=== PATIENT | female | born 1960 | race Caucasian/White ===

== ENCOUNTER 2018-08-05 19:41 | Inpatient (IN) | payer BC ==
[~2018-08-05] VITALS: Ht 172.7 cm; Wt 105.2 kg
[2018-08-05 19:58] VITALS: BP 148/63
[2018-08-05] MEDS ORDERED: LIPITOR10 MG PO (20:16)
[2018-08-05] MEDS ORDERED: ASPIRIN325 PO (20:16)
[2018-08-05] MEDS ORDERED: NORVASC10 MG PO (20:16)
[2018-08-05] MEDS ORDERED: COLCHICINE0.6 MG PO (20:16)
[2018-08-05] MEDS ORDERED: ACYCLOVIR 400400 MG PO (20:16)
[2018-08-05] MEDS ORDERED: COLACE100 MG PO (20:17)
[2018-08-05] MEDS ORDERED: IRON325 PO (20:17)
[2018-08-05] MEDS ORDERED: FOLIC ACID1 MG PO (20:17)
[2018-08-05] MEDS ORDERED: DECADRON4 MG PO (20:17)
[2018-08-05] MEDS ORDERED: NORCO 7.5-3251 EACH PO (20:18)
[2018-08-05] MEDS ORDERED: REVLIMID25 MG PO (20:19)
[2018-08-05] MEDS ORDERED: TOPROL XL100 MG PO (20:19)
[2018-08-05] MEDS ORDERED: COZAAR100 MG PO (20:19)
[2018-08-05] MEDS ORDERED: PROTONIX40 M1 PO (20:20)
[2018-08-05] MEDS ORDERED: ONDANSETRON ODT8 MG PO (20:20)
[2018-08-05] MEDS ORDERED: MIRALAX17 GM PO (20:20)
[2018-08-05] MEDS ORDERED: BACTRIM DS TAB1 EACH PO (20:21)
[2018-08-05 20:31] LABS: HEMATOCRIT 28.9 % (37.0-47.0); HEMOGLOBIN 9.3 gm/dL (12.0-15.0); MCH 28.7 pg (26.0-34.0); MCHC 32.2 g/dL (28.0-37.0); MCV 89.2 fL (80.0-100.0); MPV 9.1 fl. (7.2-11.1); NUCLEATED RBCS 0 /100WBC; PLATELET COUNT* 143 thou/uL (150-400); RBC 3.24 mil/uL (4.20-5.00); RDW-CV 19.6 % (10.5-14.5)
[2018-08-05 20:43] LABS: ANION GAP 9 mmol/L (7-16); BUN 10 mg/dL (7-18); CALCIUM 7.9 mg/dL (8.5-10.1); CHLORIDE 100 mmol/L (98-107); CO2 27 mmol/L (21-32); CREATININE 0.9 mg/dL (0.6-1.3); GLUCOSE 107 mg/dL (70-99); POTASSIUM 3.2 mmol/L (3.5-5.1); SODIUM 136 mmol/L (136-145)
[2018-08-05 20:50] LABS: ALBUMIN 2.6 g/dL (3.4-5.0); ALKALINE PHOSPHATASE 106 U/L (46-116); SGOT 16 U/L (15-37); SGPT 29 U/L (30-65); TOTAL BILIRUBIN 0.4 mg/dL (<0.1-1.0); TOTAL PROTEIN 7.2 g/dL (6.4-8.2); TROPONIN-I LEVEL <0.06 ng/mL (<0.06)
[2018-08-05 20:56] LABS: INR 1.1; PROTIME 10.8 Seconds (9.20-11.50)
[2018-08-05 21:20] LABS: ABSOLUTE BASOPHILS 0.1 thou/uL (0.0-0.2); ABSOLUTE LYMPHOCYTES 0.2 thou/uL (0.8-5.3); ABSOLUTE MONOCYTES 0.2 thou/uL (0.0-1.2); ABSOLUTE NEUTROPHILS 3.4 thou/uL (1.6-8.1); PLATELET ESTIMATE DECREASED
[2018-08-05 21:21] LABS: ANISOCYTOSIS 1+
[2018-08-06] VITALS (23 sets, daily range): BP systolic 129–170; BP diastolic 64–109
--- NOTE | 2018-08-06 06:19 | NUR ---
PT ADMITTED FROM ER AND MOVED SELF TO BED WITH HELP. PT AAOX4, RESP REG AND MILDLY LABORED AT TIMES. NO ACUTE DISTRESS NOED AT THIS TIME. PT DENIES PAIN AT THIS TIME. PT ORIENTED TO ROOM, CALL SYSTEM BED CONTROLS ANSD TV CONTROLS. VSS AND NO ACUTE CHANGES DURING SHIFT. CURATORIAL SPECIALIST APPLIED. PT HEPARIN GTT INTACT AND INFUSING AT 15U / HR ORDRED. WILL CONTINNUE TO MONITOR
[2018-08-06 07:59] LABS: CALCIUM 7.8 mg/dL (8.5-10.1); CREATININE 0.7 mg/dL (0.6-1.3); MAGNESIUM 1.3 mg/dL (1.8-2.4); POTASSIUM 3.2 mmol/L (3.5-5.1)
--- NOTE | 2018-08-06 13:05 | EKG ---
[place] [address] ELECTROCARDIOGRAM REPORT Name: RAMA PERKNIS Room: [address] ADM IN .R.#: [id number] Admission: 08/05/18 Attend Phys: Adenike Tang Discharge: Date of : 64 Report #: [id number] THIS REPORT FOR: //name// [facility] ED Test Date: 2018-08-05 Test Time: 20:58:23 Pat Name: RAMA PERKINS Department: Room: [facility] Gender: F Rn Neurology: KELLI : 1960 Requested By: Noe Nelson Order Number: [id number] MD: Deepak Ledezma Measurements Intervals [employer] Rate: 112 P: 25 WA: 137 QRS: -3 QRSD: 86 T: 9 QT: 321 QTc: 438 Interpretive Statements Sinus tachycardia No previous ECG available for comparison Electronically Signed On 08-06-2018 13:04:51 CDT by Deepak Ledezma [email or web address] <ELECTRONICALLY SIGNED> By: Deepak Ledezma MD, [facility] 08/06/18 1304 57 Deepak Ledezma MD, FACC /EPI
[2018-08-06 13:09] LABS: URINE BILIRUBIN NEGATIVE (Negative); URINE BLOOD NEGATIVE (Negative); URINE CLARITY CLEAR; URINE COLOR YELLOW; URINE GLUCOSE-RANDOM NEGATIVE (Negative); URINE KETONES NEGATIVE (Negative); URINE LEUKOCYTES-REFLEX NEGATIVE (Negative); URINE NITRITE-REFLEX NEGATIVE (Negative); URINE PROTEIN NEGATIVE (Negative); URINE SPECIFIC GRAVITY <= 1.005 (1.005-1.030); URINE UROBILINOGEN 0.2 E.U./dl (0.2-1.0)
--- NOTE | 2018-08-06 13:39 | 2DMMODE ---
[place] [address] 2 D/M-MODE ECHOCARDIOGRAM Name: RAMA PERKINS Room: [address] ADM IN [facility]#: [id number] Admission: 08/05/18 Attend Phys: Kashmir Sunshine Discharge: Date of : 64 Date of Service: 08/06/18 1339 Report #: [id number] THIS REPORT FOR: //name// APPROVED REPORT Study performed: 08/06/2018 10:51:46 EXAM: Comprehensive 2D, Doppler, and color-flow Echocardiogram Patient Location: In-Patient Room #: [facility] Status: routine BSA: 2.18 HR: 104 bpm BP: 158/82 mmHg Rhythm: NSR Other Information Study Quality: Fair Indications Pulmonary Embolism 2D Dimensions IVSd: 12.17 (7-11mm) LVOT Diam: 20.67 (18-24mm) LVDd: 42.27 mm PWd: 10.98 (7-11mm) Ascending Ao: 31.14 (22-36mm) LVDs: 23.26 (25-40mm) Aortic Root: 27.21 mm Volumes Left Atrial Volume (Systole) LA ESV Index: 16.80 mL/m2 Aortic Valve AoV Peak Neville.: 1.93 m/s AO Peak Gr.: 14.92 mmHg LVOT Max P.12 mmHg AO Mean Gr.: 8.64 mmHg LVOT Mean P.90 mmHg LVOT Max V: 1.67 m/s AO V2 VTI: 31.42 cm LVOT Mean V: 1.12 m/s YUE (VTI): 3.06 cm2 LVOT V1 VTI: 28.66 cm Mitral Valve E/A Ratio: 1.07 MV Decel. Time: 192.69 ms MV E Max Neville.: 0.96 m/[place] [address] 2 D/M-MODE ECHOCARDIOGRAM Name: RAMA PERKINS Room: [address] IN .R.#: [id number] Admission: 08/05/18 Attend Phys: Kashmir Sunshine Discharge: Date of : 64 Date of Service: 08/06/18 1339 Report #: [id number] MV PHT: 55.88 ms MVA (PHT): 3.94 cm2 TDI E/Lateral E': 6.00 E/Medial E': 6.86 Medial E' Neville.: 0.14 m/s Lateral E' Neville.: 0.16 m/s Pulmonary Valve PV Peak Neville.: 1.12 m/s PV Peak Gr.: 5.06 mmHg Left Ventricle The left ventricle is normal size. There is normal LV segmental wall motion. There is normal left ventricular wall thickness. Left ventricular systolic function is normal. The left ventricular ejection fraction is within the normal range. LVEF is 60-65%. The left ventricular diastolic function is normal. Right Ventricle The right ventricle is normal size. The right ventricular systolic function is normal. Atria The left atrium size is normal. The right atrium size is normal. Aortic Valve The aortic valve is normal in structure. No aortic regurgitation is present. There is no aortic valvular stenosis. Mitral Valve The mitral valve is normal in structure. There is no mitral valve regurgitation noted. No evidence of mitral valve stenosis. Tricuspid Valve The tricuspid valve is normal in structure. Unable to assess PA pressure. Trace tricuspid regurgitation. Pulmonic Valve Pulmonic valve is not well visualized. There is no pulmonic valvular regurgitation. Great Vessels The aortic root is normal in size. IVC is normal in size and collapses with >50% [place] [address] 2 D/M-MODE ECHOCARDIOGRAM Name: RAMA PERKINS Room: [address] IN [facility]#: [id number] Admission: 08/05/18 Attend Phys: Kashmir Sunshine Discharge: Date of : 64 Date of Service: 08/06/18 1339 Report #: [id number] Pericardium There is no pericardial effusion. <Conclusion> Left ventricular systolic function is normal. The left ventricular ejection fraction is within the normal range. <ELECTRONICALLY SIGNED> By: Deepak Ledezma MD, FACC 08/06/18 1339 1339 1339 Deepak Ledezma MD, FACC /INF
--- NOTE | 2018-08-06 15:28 | NUR ---
ULTRASOUND OF BILATERAL LOWER EXTREMITIES COMPLETED AND RESULTED CLOT IN LEFT LEG. DR DOMENICO MARTINES. WAITING ON RESPONSE.
--- NOTE | 2018-08-06 15:56 | NUR ---
DR ACUÑA RETURNED CALL, NO CHANGE TO TREATMENT.
--- NOTE | 2018-08-06 17:08 | NUR ---
PATIENT ASSESSMENT REMAINED STABLE THROUGHOUT SHIFT. AFEBRILE. VSS. TRACING NSR TO SINUS TACH ON DIRECTOR OF OPERATIONS FOR THERAPY. UP TO BSC COMMODE TO URINATE X2. FAIR APPETITE NOTED. DENIES PAIN. DENIES FURTHER CONCERNS ABOUT CURRENT PLAN OF CARE.
[2018-08-07] VITALS: BP 154/72
[2018-08-07 02:00] VITALS: BP 139/68
[2018-08-07 04:05] VITALS: BP 142/79
[2018-08-07 04:26] LABS: HEMOGLOBIN 8.1 gm/dL (12.0-15.0); MCH 28.7 pg (26.0-34.0); MCHC 32.4 g/dL (28.0-37.0); MCV 88.7 fL (80.0-100.0); MPV 9.3 fl. (7.2-11.1); RBC 2.82 mil/uL (4.20-5.00)
[2018-08-07 04:43] LABS: CALCIUM 7.7 mg/dL (8.5-10.1); CREATININE 0.6 mg/dL (0.6-1.3); MAGNESIUM 1.4 mg/dL (1.8-2.4); POTASSIUM 3.4 mmol/L (3.5-5.1)
--- NOTE | 2018-08-07 05:21 | NUR ---
PT. PROGRESSING TOWARDS GOALS. UP TO BEDSIDE COMMODE INDEPENDENTLY THROUGHOUT SHIFT. 2L O2 PUT ON PT. DUE TO O2 DESAT WHEN SLEEPING. PT. HAS HAD NON-PRODUCTIVE COUGH. DENIED PAIN THROUGHOUT SHIFT. CALL LIGHT IN REACH, WILL CONTINUE TO MONITOR.
[2018-08-07 06:08] VITALS: BP 142/77
--- NOTE | 2018-08-07 09:14 | CON ---
[address] [address] CONSULTATION Name: RAMA PERKINS Room: [address] ADM IN M.R.#: [id number] Admission: 08/05/18 Attend Phys: Adenike Tang Discharge: Date of : 64 Report #: [id number] THIS REPORT FOR: //name// CC: Jose Sunshine DATE OF SERVICE: 08/06/2018 REASON FOR CONSULTATION: Pulmonary embolus, multiple myeloma. REQUESTING PHYSICIAN: Dr. Sunshine. HISTORY OF PRESENT ILLNESS: The patient is a pleasant 58-year-old woman with multiple myeloma who was under the care of sugar plantation manager at [facility], just recently transferred to [facility], has seen Dr. Frank. He recommended Velcade, dexamethasone and Revlimid. The patient started treatment a month ago, completed one full cycle and started second cycle of treatment. She presented to Emergency Room with complaints of fevers, cough and nasal congestion. She was found to have large saddle pulmonary embolus. Oncology consult was requested. The patient is on heparin drip. She is doing very well. She is off oxygen. She does not have chest pain. Denies significant shortness of breath. She continues to have nasal congestion and cough, productive of somewhat yellow sputum. She has history of right foot tendinitis and swelling of right foot. [facility]. She has had a Doppler ultrasound months ago, which was negative. A second Doppler ultrasound was not ordered. She has not had Doppler ultrasound of lower extremities in the hospital either. PAST MEDICAL HISTORY: Significant for multiple myeloma, hypertension. SOCIAL HISTORY: She does not smoke. REVIEW OF SYSTEMS: CONSTITUTIONAL: Negative for weight loss. MUSCULOSKELETAL: Denies back pain. NEUROLOGIC: Denies tingling or numbness in extremities. PSYCHIATRIC: Negative. PULMONARY: See above. GASTROINTESTINAL: No nausea, vomiting, diarrhea. RESPIRATORY: See above. CARDIOVASCULAR: See above. PHYSICAL EXAMINATION: GENERAL: Reveals well-developed, well-nourished man, not in acute distress. VITAL SIGNS: Blood pressure 150/72, heart rate is 98, temperature 98.8, respirations 18, pulse ox 94% [place] [address] CONSULTATION Name: RAMA PERKINS Room: [address] IN [facility].#: [id number] Admission: 08/05/18 Attend Phys: Adenike Tang Discharge: Date of : 64 Report #: [id number] HEENT: Does not reveal thrush. HEART: Normal S1, S2. LUNGS: Clear. ABDOMEN: Soft. No organomegaly. EXTREMITIES: Slight swelling of the left lower extremity. SKIN: No rash. PSYCHIATRIC: Alert, oriented x 3. There is no peripheral lymphadenopathy. LABORATORY DATA: White count 4.0, hemoglobin 9.3, platelets 143. Sodium 137, potassium 2.2, magnesium 1.3. Total protein 7.2, albumin 2.6. Chest CT angio, saddle embolus is the largest component in the left main pulmonary artery, measures 1.1 cm in thickness, at least 10 cm in length, bilateral lower lobe pulmonary artery filling defects. ASSESSMENT AND PLAN: 1. Pulmonary embolus, the patient is hemodynamically stable. Agree with management. The patient can be discharged on Xarelto when she is ready to go home. Recommend to check Doppler ultrasound of lower extremity to determine origin of the venous thrombosis. She understands that risk of venous thrombosis is increased with Revlimid. She was on full dose of aspirin for prophylaxis, this can be discontinued. 2. Multiple myeloma. Otherwise, continue current management. She will continue dexamethasone and Revlimid as prescribed previously. Continue Velcade according to her schedule. 3. Sinusitis and bronchitis, agree with antibiotics. 4. Hypokalemia, management of hypokalemia and hypomagnesemia deferred to hospitalist. Thank you very much for allowing me to participate in the care of this patient. <ELECTRONICALLY SIGNED> By: Everett Stuart MD 08/07/18 0914 1314 [id number] Stuart MD /nt
[2018-08-07 16:00] VITALS: BP 125/77
--- NOTE | 2018-08-07 17:28 | NUR ---
PATIENT TRANSFERRED FROM ICU TO ROOM 311 AT 1600. REPORT RECEIVED AT BEDSIDE, PATIENT'S PATIENT REGISTRATION REP RESUMED. PATIENT TRACING NSR/ST AT TIMES. PATIENT DENIES PAIN. AGREE WITH PREVIOUS ASSESMENT, VITALS STABLE ON ROOM AIR. PATIENT UP WITH ASSIST OF 1 AND WALKER. CONTINUES ON IV ANTIBIOTICS. HOURLY ROUNDING COMPLETED. CALL LIGHT WITHIN REACH. WILL CONTINUE WITH PLAN OF CARE.
[2018-08-07 20:00] VITALS: BP 113/78
[2018-08-08 00:23] VITALS: BP 157/75
[2018-08-08 04:13] VITALS: BP 149/76
[2018-08-08 05:00] LABS: HEMOGLOBIN 8.2 gm/dL (12.0-15.0); MCH 28.9 pg (26.0-34.0); MCHC 32.5 g/dL (28.0-37.0); MCV 88.8 fL (80.0-100.0); MPV 8.8 fl. (7.2-11.1); RBC 2.82 mil/uL (4.20-5.00); RDW-CV 19.1 % (10.5-14.5); WBC 2.1 thou/uL (4.0-11.0)
[2018-08-08 05:39] LABS: CALCIUM 7.9 mg/dL (8.5-10.1); CREATININE 0.5 mg/dL (0.6-1.3); MAGNESIUM 1.6 mg/dL (1.8-2.4); POTASSIUM 3.4 mmol/L (3.5-5.1)
--- NOTE | 2018-08-08 06:17 | NUR ---
PT SLEPT OFF AND ON OVERNIGHT. LFA SL, ABX GIVEN SCHEDULED. TELE SR, ST WITH EPISODE OF AFIB DURING VANC INFUSION. UP WITH WALKER AD QI IN ROOM. ABLE TO USE CALL LITE AND MAKE NEEDS KNOWN.
[2018-08-08 08:15] VITALS: BP 133/72
--- NOTE | 2018-08-08 10:44 | NUR ---
SW met with pt to complete initial assessment, introduce self, and SW role. Pt alert, oriented, pleasant. Pt lives at home alone and has a brother, mother, and friends who are supportive. Pt on abx. Pt did not express any dc needs at this time. SW to continue to follow to assist with safe dc planning.
--- NOTE | 2018-08-08 11:48 | CON ---
[address] [address] CONSULTATION Name: RAMA PERKINS Room: [address] IN M.R.#: [id number] Admission: 08/05/18 Attend Phys: Adenike Tang Discharge: Date of : 64 Report #: [id number] THIS REPORT FOR: //name// CC: Jose Sunshine DATE OF SERVICE: 08/07/2018 INFECTIOUS DISEASES CONSULTATION ATTENDING PHYSICIAN: Dr. Sunshine. REASON FOR EVALUATION: Gram-positive septicemia. HISTORY OF PRESENT ILLNESS: Chart reviewed, patient examined. This is a 58-year-old woman with known multiple myeloma diagnosed earlier this year, has been undergoing chemotherapy, who presented to the emergency room with complaints of a cough with onset on 08/03/2018. She attributes this in part to some seasonal allergies, she did have associated mild sore throat as well. Over the course of next 24 to 36 hours, she developed fevers, high-grade to 104. At that point, it was instructed by her oncologist to go ahead and go to the Emergency Room. She was subsequently admitted. It is notable that she has been on chemotherapy. There is some mild anorexia, decreased p.o. intake. No significant sinus complaints. She has associated dyspnea. No abdominal-related complaints. She has not had diarrhea. On questioning, no particular exposure history that she is aware of. She has lived by herself. Generally, she has been staying inside mostly, no recent travel, does have a cat that is essentially limited to the indoors. Evaluation was undertaken. Chest x-ray was otherwise unremarkable. CTA of the chest did show evidence of saddle embolus. She also had evidence of deep venous thrombosis in left lower extremity. Initial lactic acid was 2.3, increased to 2.7 and now 1.5. Blood cultures collected show gram-positive cocci. She was empirically started on antimicrobial therapy, ceftriaxone and vancomycin. She is encephalopathic. ALLERGIES: None known. MEDICATIONS: Include dexamethasone, azithromycin, ceftriaxone, metoprolol, losartan, folic acid, colchicine, amlodipine, pantoprazole, atorvastatin, acyclovir, vancomycin, enoxaparin. PAST MEDICAL HISTORY: History of multiple myeloma, hypertension, previous stroke. SOCIAL HISTORY: Nonsmoker, no ethanol. FAMILY HISTORY: [place] [address] CONSULTATION Name: RAMA PERKINS Room: [address] IN [facility]#: [id number] Admission: 08/05/18 Attend Phys: Adenike Tang Discharge: Date of : 64 Report #: [id number] REVIEW OF SYSTEMS: As above. PHYSICAL EXAMINATION: GENERAL: She appears somewhat chronically ill. She is pleasant, cooperative, in sees-od-szivzrtu distress. She is not encephalopathic, appears to be undernourished. VITAL SIGNS: Temperature overnight max 100.8, more recently 99.6; pulse 90, respirations 18, blood pressure 132/74. SKIN: Warm, dry, no rashes. HEENT: Unremarkable. NECK: Supple. LUNGS: Generally clear to auscultation. HEART: Regular. I do not appreciate any murmur. ABDOMEN: Soft, nontender, nondistended. EXTREMITIES: No cyanosis. GENITOURINARY: Deferred. RECTAL: Deferred. LABORATORY DATA: Blood cultures as described above 12/22 with Gram-positive cocci. Initial electrolytes: Sodium 136, potassium 3.2, chloride 100, bicarbonate 27, BUN and creatinine 10 and 0.9, glucose of 107. LFTs are unremarkable. Albumin of 2.6. Total protein 7.2. Estimated GFR of 70 and 65. Initial INR of 1.1, protime of 10.8. CBC: White count of 4.0, H and H 9.3 and 28.9, platelets of 143. She does have lymphocytopenia. ASSESSMENT: Gram-positive septicemia, it is unclear as to the source at this point, perhaps skin and soft tissue infection, can entirely exclude early respiratory tract infection. Continue combination therapy at this point on empiric basis, I would expect her to be on a wean-down to a single agent in the next 24-48 hours. We will monitor expectantly, evidence for any other clues that may give us a source of infection. <ELECTRONICALLY SIGNED> By: Eriberto Crowell MD 08/08/18 1148 1210 [id number] Crowell MD /nt
--- NOTE | 2018-08-08 13:04 | CON ---
[facility] [address] [place] [address] CONSULTATION Name: RAMA PERKINS Room: [address] IN M.R.#: [id number] Admission: 08/05/18 Attend Phys: Adenike Tang Discharge: Date of : 64 Report #: [id number] THIS REPORT FOR: //name// CC: Jose Sunshine DATE OF SERVICE: 08/07/2018 SUBJECTIVE: The patient is feeling better today. She continues to have upper respiratory congestion, cough. Denies shortness of breath. Denies chest pain. OBJECTIVE: VITAL SIGNS: Blood pressure 132/74, heart rate is 90, temperature 99.6, T-max is 100.8. HEENT: Does not reveal thrush. HEART: Normal S1, S2. LUNGS: Clear. ABDOMEN: Soft. EXTREMITIES: Left leg is slightly swollen. LABORATORY DATA: White count 3.0, hemoglobin 8.1, platelets 120. Blood culture, no gross but gram-positive cocci identified regarding its identification, susceptibility is pending. These are in 2 sets positive, 08/05. Ultrasound of lower extremity shows extensive left leg venous thrombus. ASSESSMENT AND PLAN: 1. Deep venous thrombosis, pulmonary embolism. The patient's condition is stable. Continue anticoagulation. Plan is to give her Xarelto long-term. 2. Multiple myeloma. I advised her to restart Revlimid. She will continue Velcade when she is discharged from the hospital. 3. Thrombocytopenia secondary to Revlimid, mild. 4. Anemia. Continue to monitor. 5. Bacteremia. Defer management to ID. <ELECTRONICALLY SIGNED> By: Everett Stuart MD 08/08/18 1304 0924 [id number] Stuart MD /nt
[2018-08-08 16:18] VITALS: BP 141/69
--- NOTE | 2018-08-08 17:20 | EKG ---
[place] [address] ELECTROCARDIOGRAM REPORT Name: RAMA PERKINS Room: [address] ADM IN M.R.#: [id number] Admission: 08/05/18 Attend Phys: Adenike Tnag Discharge: Date of : 64 Report #: [id number] THIS REPORT FOR: //name// [facility] Test Date: 2018-08-08 Test Time: 01:09:42 Pat Name: RAMA PERKINS Department: Room: [address] Gender: F Public Safety Director: : 1960 Requested By: Kashmir Sunshine Order Number: [id number] Leonel MD: Stanley Wagner Measurements Intervals [place] Rate: 116 P: ME: QRS: 2 QRSD: 84 T: -2 QT: 340 QTc: 473 Interpretive Statements Atrial fibrillation Ventricular premature complex Borderline T wave abnormalities Baseline wander in lead(s) V2 Compared to ECG 08/05/2018 20:58:23 Ventricular premature complex(es) now present T-wave abnormality now present Sinus tachycardia no longer present Electronically Signed On 08-08-2018 17:19:57 CDT by Stanley Wagner [email or web address] <ELECTRONICALLY SIGNED> By: Stanley Wagner MD, [facility] 08/08/18 1719 8 8 Stanley Wagner MD, [facility] /EPI
--- NOTE | 2018-08-08 17:44 | NUR ---
PATIENT HAS BEEN A/O X 4 THIS SHIFT. HAS DENIED PAIN OR SHORTNESS OF AIR. PATIENT CONTINUES ON WELDER APPRENTICE ARC, TRACING NSR. PATIENT UP WITH WALKER IN ROOM. IV ANTIBIOTICS CONTINUE TO INFUSE. PATIENT STARTED ON XARELTO THIS EVENING. HOURLY ROUNDING COMPLETED. CALL LIGHT WITHIN REACH. WILL CONTINUE WITH PLAN OF CARE.
[2018-08-08 19:24] VITALS: BP 144/70
[2018-08-08 23:42] VITALS: BP 146/75
[2018-08-09 04:13] VITALS: BP 166/83
[2018-08-09 04:24] LABS: CALCIUM 8.2 mg/dL (8.5-10.1); CREATININE 0.7 mg/dL (0.6-1.3); MAGNESIUM 1.5 mg/dL (1.8-2.4); POTASSIUM 3.1 mmol/L (3.5-5.1)
--- NOTE | 2018-08-09 05:21 | NUR ---
ASSESSMENT COMPLETE. PT UP MOST OF THE NIGHT. PT DENIES PAIN AND N/V. PT REPORTS SHE HAS DIFFICULTY SLEEPING AT NIGHT. PRN MELATONIN GIVEN. PT IS NSR ON TELE MONITOR. PT IN LOW 100'S WHEN AMBULATING. PT IS ON ROOM AIR WITH ADEQAUTE SATS. PT GIVEN ABX ORDERED. PT IS UP AD QI WITH WALKER. SEE ASSESSMENT AND VITALS FOR OTHER DETAILS. CALL LIGTH WITHIN REACH, WILL CONTINUE PLAN OF CARE
[2018-08-09 08:00] VITALS: BP 132/75
--- NOTE | 2018-08-09 10:36 | NUR ---
INDUSTRIAL DESIGNER SPOKE TO SREEDHAR WITH [facility] TO DISCUSS THE NEED TO CHECK PATIENT'S BENFITS FOR IV ABT'S AT D/C, AND FAXED [facility] PATIENT'S FACESHEET, H&P, AND MED LIST. [facility] TO RETURN CALL TO CM TO INFORM OF BENFIT INFO. CM WILL REMAIN AVAILABLE TO ASSIST AND FOLLOW NEEDED.
[2018-08-09 12:00] VITALS: BP 147/75
[2018-08-09 16:48] VITALS: BP 150/75
--- NOTE | 2018-08-09 18:14 | NUR ---
SHIFT NOTE - PT UP IN CHAIR FOR MOST OF AFTERNOON. TOLERATED WELL. IV ABX DC'ED. UP TO BATHROOM WITH WALKER AND STANDBY ASSIST. WILL CONTINUE TO MONITOR.
[2018-08-09 19:23] VITALS: BP 133/71
[2018-08-10] VITALS: BP 133/71
[2018-08-10 04:02] VITALS: BP 138/70
--- NOTE | 2018-08-10 05:04 | NUR ---
ASSESSMENT COMPLETE. PT SLEPT THROUGH THE NIGHT WITHOUT ANY CONCERNS. PT IS ON TELE MONITOR-NSR. PT IS ON ROOM AIR WITH ADEQUATE SATS. PT DENIES PAIN AND N/V. PT HAS IV IN LEFT AC, SALINE LOCKED AND FLUSHES WITHOUT DIFFICULTY. PT IS UP AD QI WITH WALKER. SEE ASSESSMENT AND VITALS FOR OTHER DETAILS. CALL LIGHT WITHIN REACH, WILL CONTINUE PLAN OF CARE
[2018-08-10 08:20] VITALS: BP 131/77
[2018-08-10] MEDS ORDERED: XARELTO15 MG PO (09:20)
[2018-08-10] MEDS ORDERED: XARELTO20 MG PO (09:20)
[2018-08-10 10:01] LABS: ALBUMIN 2.4 g/dL (3.4-5.0); CALCIUM 8.3 mg/dL (8.5-10.1); CREATININE 0.6 mg/dL (0.6-1.3); MAGNESIUM 1.7 mg/dL (1.8-2.4); POTASSIUM 3.7 mmol/L (3.5-5.1); TOTAL BILIRUBIN 0.3 mg/dL (<0.1-1.0); TOTAL PROTEIN 6.4 g/dL (6.4-8.2)
[2018-08-10 10:30] VITALS: BP 131/77
[2018-08-10] MEDS ORDERED: AMOXICILLIN500 M1 PO (11:15)
--- NOTE | 2018-08-10 11:56 | NUR ---
PATIENT DISCHARGED TO HOME AT THIS TIME. MG GIVEN X 2 FOR VALUE OF 1.7 PER PROTOCOL. 1ST DOSE OF AMOXICILLIN GIVEN PRIOR TO DISCHARGE. ENGINE OILER WAS TRACING SR. UP WITH SBA, WALKER UTILIZED AND STEADY GAIT NOTED. IV DC'D. VERBALIZES UNDERSTANDING OF PAPERWORK, SCRIPTS CALLED INTO [facility] ON [facility] PER PATIENT REQUEST. PATIENT TAKEN OUT VIA WHEELCHAIR WITH ALL BELONGINGS BY STAFF.
== END 2018-08-10 11:58 | disposition home or self-care (01) | DRG 871 ==
LOC: M.ERS 19:41 → M.ICU 23:21 → M.TBA-ER 23:21 → M.ICU 08-06 00:52 → M.3W 08-07 16:05
PROVIDERS: Emergency Medicine Emergency Medical Services; Internal Medicine; ADMIT Internal Medicine
DX: A41.89 Other specified sepsis (principal); I26.92 Saddle embolus of pulmonary artery without acute cor pulmonale; C90.00 Multiple myeloma not having achieved remission; D68.59 Other primary thrombophilia; I82.402 Acute embolism and thrombosis of unspecified deep veins of left lower extremity; I10 Essential (primary) hypertension; J32.9 Chronic sinusitis, unspecified; J40 Bronchitis, not specified as acute or chronic; E87.6 Hypokalemia; E83.42 Hypomagnesemia; D69.6 Thrombocytopenia, unspecified; D64.9 Anemia, unspecified; T45.1X5A Adverse effect of antineoplastic and immunosuppressive drugs, initial encounter; I48.0 Paroxysmal atrial fibrillation; Z86.73 Personal history of transient ischemic attack (TIA), and cerebral infarction without residual deficits; Z79.899 Other long term (current) drug therapy